=== PATIENT | male | born 2000 | race African-American/Black ===

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

== ENCOUNTER 2021-07-03 16:23 | Emergency (ER) | payer BC, MEDICAID ==
[~2021-07-03] VITALS: Ht 170.2 cm; Wt 54.4 kg
[2021-07-03 16:33] VITALS: BP 108/69
[2021-07-03] MEDS ORDERED: KETOROLAC TROMETHAMINE INJ 30 MG/ML VIAL IM ONE (17:30)
[2021-07-03] MEDS ORDERED: IBUP-1955 PO (17:31)
[2021-07-03] MEDS ORDERED: KETOROLAC TROMETHAMINE 15 MG/ML VIAL ONE (18:05)
--- NOTE | 2021-07-03 18:39 | NUR ---
Patient discharged to home in stable condition. Written and verbal after care instructions given. Patient verbalizes understanding of instruction. Pt ambulatory with a steady gait
--- NOTE | 2021-07-03 18:40 | NUR ---
PHONE NUMBER [phone]
== END 2021-07-03 18:40 | disposition home or self-care (01) ==
LOC: ER 16:39
DX: R51.9 Headache, unspecified (principal); J02.9 Acute pharyngitis, unspecified; R05 Cough; Z20.822 Contact with and (suspected) exposure to COVID-19; J45.909 Unspecified asthma, uncomplicated
CPT/HCPCS: 87426; 96372; 99283; C9803; J1885; U0003

== ENCOUNTER → 2021-08-14 | Emergency (ER) | payer MEDICAID ==
[~2021-08-14] VITALS: Ht 167.6 cm; Wt 49.9 kg
[~2021-08-14] MED LIST: IBUP-1955 PO
[2021-08-14 12:08] VITALS: BP 135/104
--- NOTE | 2021-08-14 12:21 | NUR ---
Patient discharged to home in stable condition. Written and verbal after care instructions given. Patient verbalizes understanding of instruction. unable to depart due to meditech issues.
== END | disposition home or self-care (01) ==
LOC: ER 12:27
DX: R52 Pain, unspecified (principal); J45.909 Unspecified asthma, uncomplicated; V49.69XA Unspecified car occupant injured in collision with other motor vehicles in traffic accident, initial encounter; Y93.89 Activity, other specified; Y92.413 State road as the place of occurrence of the external cause; Y99.8 Other external cause status

== ENCOUNTER 2021-11-04 09:55 | Emergency (ER) | payer MEDICAID ==
[~2021-11-04] VITALS: Ht 170.2 cm; Wt 55.8 kg
[2021-11-04] MEDS ORDERED: BENZ-13 PO (10:39)
[2021-11-04] MEDS ORDERED: IBUP-1955 PO (10:39)
[2021-11-04] MEDS ORDERED: ALBU18HF2 INH (10:39)
[2021-11-04] MEDS ORDERED: OSEL75CA PO (10:39)
[2021-11-04 11:13] VITALS: BP 123/72
== END 2021-11-04 11:10 | disposition home or self-care (01) ==
LOC: ER 09:59
DX: U07.1 COVID-19 (principal); R00.0 Tachycardia, unspecified; J45.909 Unspecified asthma, uncomplicated; R03.0 Elevated blood-pressure reading, without diagnosis of hypertension
CPT/HCPCS: C9803; U0003